=== PATIENT | female | born 1975 | race Caucasian/White ===

== ENCOUNTER 2018-07-18 08:12 | Observation (INO) | payer SELFPAY ==
[2018-07-18 08:42] LABS: Hemoglobin 12.1 g/dL (12.0-16.0); Mean Corpuscular HGB CONC 31.3 g/dL (32.0-36.0); Mean Corpuscular Hemoglobin 25.9 pg (27.0-31.0); Mean Corpuscular Volume 82.7 fL (78.0-98.0); Mean Platelet Volume 7.2 fL (7.4-10.4); Platelet Count 313 thou/uL (130-400); RBC Distribution Width 13.8 % (11.5-14.5); White Blood Cell (WBC) Count 21.2 thou/uL (4.8-10.8)
[2018-07-18 08:53] LABS: ALT (SGPT) 17 U/L (8-55); AST (SGOT) 12 U/L (5-34); Albumin 4.2 g/dL (3.5-5.0); Alkaline Phosphatase 92 U/L (40-150); Anion Gap 12 mmol/L (10-20); BUN (Urea Nitrogen) 16 mg/dL (7.0-18.7); Bilirubin, Total 0.8 mg/dL (0.2-1.2); Calc. Creatinine Clearance 0 mL/min (70-130); Calcium 9.6 mg/dL (7.8-10.44); Carbon Dioxide 28 mmol/L (22-29); Chloride 99 mmol/L (98-107); Estimated GFR-MDRD 64; Globulin 2.7 g/dL (2.4-3.5); Glucose 108 mg/dL (70-105); Lipase 10 U/L (8-78); Potassium 3.2 mmol/L (3.5-5.1); Protein, Total 6.9 g/dL (6.0-8.3); Sodium 136 mmol/L (136-145)
[2018-07-18 09:07] LABS: Band 7 % (5-11); Lymphocytes 5 % (21-51); MDiff Complete? YES; Monocytes 6 % (0-10); Neutrophil 82 % (42-75); RBC Morphology Normal
[2018-07-18 10:12] LABS: Bilirubin Small (Negative); Blood, Urine Small (Negative); Clarity CLEAR (Clear); Glucose, Urine (Dipstick) Negative (Negative); Leukocyte Small (Negative); Nitrite Negative (Negative); Protein, Urine (Dipstick) Trace mg/dL (Neg-Trace); Specific Gravity, Urine 1.028 (1.002-1.036)
[2018-07-18 10:13] LABS: Bacteria/HPF Rare-Few HPF (None Seen); Hyaline Casts/LPF 4-6 HYALINE CAST LPF (0-3 Hyaline); Pathc Cast-AUWi Flag 0.81 (0-2.49); Squamous Epithelial 0-3 HPF (0-3); WBC/HPF 21-50 HPF (0-3)
[2018-07-18 10:17] LABS: Pregnancy Test - Urine (BHCG) Negative (Negative); Pregu Control Background? CLEAR/WHITE (CLR/WHITE); Pregu Control Bar Appear? YES (CONTROL BAR); Specific Gravity 1.028 (1.002-1.036)
[2018-07-18 10:25] LABS: RBC/HPF 0-3 HPF (0-3)
[2018-07-18] MEDS ORDERED: ISOVUE-370 76%-LOCM 1 ML ONE (11:15)
--- NOTE | 2018-07-18 12:01 | CT ---
CT OF THE ABDOMEN AND PELVIS WITH IV CONTRAST INDICATION: Lower abdominal pain COMPARISON: None FINDINGS: ABDOMEN: Lung bases: Clear Liver: There is focal fatty infiltration near the falciform ligament. Gallbladder: Normal appearing. Pancreas: Normal. Adrenal glands: Normal. Spleen: Normal. Kidneys: Normal. Retroperitoneum of the upper abdomen: No lymphadenopathy or free fluid is identified. Pelvis: Small and large bowel: There is fluid density seen within portions of the colon. There is a normal ap pendix in the right lower quadrant of the abdomen. Rectal and perirectal soft tissues:Normal. Reproductive structures: There is peripherally enhancing serpiginous tubular structures seen within t he lower pelvis adjacent to the uterus which may reflect hydrosalpinx or pyosalpinx. These may also reflect prominent cystic abnormalities of the adnexa. The uterus is heterogeneous in appearance. Free fluid in pelvis: Mild Lymphadenopathy pelvis: No lymphadenopathy is evident. Vascular structures: There is mild scattered vascular calcifications. Osseous structures: There are bilateral pars defects at L5. No acute osseous abnormality is demonstra ailin. IMPRESSION: 1. Serpiginous, peripherally enhancing tubular structures within the lower pelvis is suspicious for e ither hydrosalpinx or pyosalpinx. Pelvic ultrasound is recommended for additional evaluation. Recommend correlation with clinical exam for any symptoms and signs of pelvic inflammatory disease. 2. Fluid density in the colon is nonspecific but can be seen in diarrheal states or mild colitis. 3. Mild free fluid in the pelvis 4. Fatty liver 5. Bilateral pars defects at L5.
[2018-07-18] MEDS ORDERED: Ketorolac Tromethamine 30 MG/ML VIAL ONE (12:19)
[2018-07-18] MEDS ORDERED: Azithromycin 500 MG VIAL ONE (12:21)
[2018-07-18] MEDS ORDERED: cefTRIAXone\\ROCEPHIN 2 GM VIAL ONE (12:21)
--- NOTE | 2018-07-18 13:25 | ULT ---
PELVIC ULTRASOUND: COMPARISON: CT abdomen/pelvis 07/18/2018. HISTORY: Abnormal CT with possible hydrosalpinx seen on CT. TECHNIQUE: Multiplanar, ballesteros scale, and color Doppler images were obtained in a transabdominal and transvaginal pelvic ultrasound. Spectral analysis of the Doppler waveforms of the ovaries was performed. FINDINGS: The uterus is retroverted. A small amount of fluid is seen in the cervix. The endometrial stripe is normal in thickness measuring 10 mm. There are complex tubular structures in the bilateral adnexal regions which likely represent enlarged fallopian tubes. No echogenic material is seen within either dilated structure and the fluid remain s anechoic within the tubular structures. The bilateral ovaries are seen separate from these tubular structures. There are small follicles in both ovaries. Normal flow is seen within both ovaries. A small amount of free fluid is seen in the pelvis. IMPRESSION: Tubular structures in both adnexal regions likely represent dilated fallopian tubes and may represent hydrosalpinx. POS: [facility]
[2018-07-18 14:16] LABS: Amphetamine Not Detected (NotDetected); Barbiturates Screen Not Detected (NotDetected); Benzodiazepine Screen Not Detected (NotDetected); Cocaine Metabolite Screen Not Detected (NotDetected); Medtox Control Line Valid? VALID (VALID); Medtox Reader # READER 1; Methadone Not Detected (NotDetected); Methamphetamine Not Detected (NotDetected); Opiate Screen Not Detected (NotDetected); Oxycodone Screen Not Detected (NotDetected); Phencyclidine (PCP) Not Detected (NotDetected); THC/Cannabinoid Screen Not Detected (NotDetected); Tricyclic Screen Not Detected (NotDetected)
[2018-07-18] MEDS ORDERED: Ondansetron PF 4 MG/2 ML Vial IVP PRN (15:21)
[2018-07-18] MEDS ORDERED: Morphine 4 MG/ML VIAL SLOW IVP SCH (15:30)
[2018-07-18] MEDS ORDERED: Morphine 4 MG/ML VIAL ONE (17:20)
[2018-07-18] MEDS: cefOXitin Sodium/Dextrose,Iso 2 GM in Premix Bag 1 BAG IVPB SCH (18:56)
[2018-07-18] MEDS: Ketorolac Tromethamine 30 MG/ML VIAL IVP SCH (19:04)
[2018-07-18] MEDS ORDERED: Sodium Chloride 0.9% 10 ML ONE (21:28)
[2018-07-18] MEDS: Morphine 4 MG/ML VIAL SLOW IVP PRN (21:48)
[2018-07-18] MEDS: Doxycycline 100 MG CAP PO SCH (21:50)
[2018-07-18] MEDS: Lactated Ringer's 1,000 ML IV SCH (21:53)
[2018-07-18] MEDS ORDERED: cefOXitin 2 GM in Sodium Chloride 0.9% 100 ML IVPB SCH (22:00)
[2018-07-19] MEDS: Ketorolac Tromethamine 30 MG/ML VIAL IVP SCH ×3 (00:39→11:13)
[2018-07-19] MEDS: Lactated Ringer's 1,000 ML IV SCH ×3 (00:44→15:46)
[2018-07-19] MEDS: cefOXitin Sodium/Dextrose,Iso 2 GM in Premix Bag 1 BAG IVPB SCH ×3 (00:45→19:00)
--- NOTE | 2018-07-19 01:00 | HP ---
PRIMARY HAZARDOUS WASTE REMOVER: None. CHIEF COMPLAINT: Pelvic abdominal pain. HISTORY OF PRESENT ILLNESS: The patient is a 42-year-old female, recently released from 20 years of incarceration in May, presenting today with 2-day history of worsening abdominal pain associated with nausea and vomiting yesterday and diarrhea today. She also reports that her pain was exacerbated with laying on her back for the ultrasound ordered by the ER physician. The patient does report she had intercourse a couple weeks ago with a new partner. She reports a history of chlamydia prior to incarceration. The patient reports regular monthly periods and just recently ended her period in the last few days. She denies any change in discharge, constipation, fever, chest pain, shortness of breath, any new rashes, hip problems, knee problems, muscle weakness, vaginal bleeding or discharge, urinary urgency or frequency. PAST MEDICAL HISTORY: Hyperlipidemia and elevated blood pressure. PAST SURGICAL HISTORY: Negative. ALLERGIES: NO KNOWN DRUG ALLERGIES. MEDICATIONS: 1. Hydrochlorothiazide 25 mg daily. 2. Metoprolol 25 mg twice daily. 3. Pravastatin 10 mg once daily. PHYSICAL EXAMINATION: VITAL SIGNS: Blood pressure is 147/91, pulse of 102, respiratory rate 18, pain 6/10, saturating 99% on room air. GENERAL: She appears to be in no acute distress, sitting still, does appear to have quite a bit of discomfort with trying to move her body into position for an exam. GENERAL: She is alert, oriented, cooperative, and pleasant to interact with. HEAD: Normocephalic, atraumatic. LUNGS: Clear to auscultation bilaterally. HEART: Has a regular rate and rhythm. ABDOMEN: Upper abdomen is soft. She does have quite significant lower abdominal tenderness. She also has significant tenderness to palpation and percussion of her back. EXTREMITIES: Nontender, nonedematous. Vulva is without masses, lesions, or erythema. CERVIX: On speculum exam, the patient reports significant discomfort with exam with visualization of the cervix. Cervix is visibly closed and nulliparous. She does have some purulent discharge present on bimanual exam. She has exquisite tenderness of the cervix and uterus with less tenderness in her adnexa. IMAGING: CT scan performed in the emergency room showed tubular structures in the pelvis suspicious for hydrosalpinx or pyosalpinx. Mild free fluid in the pelvis. Fatty liver. Followup ultrasound shows again tubular structures in the adnexa consistent with hydrosalpinx with anechoic fluid with a small amount of fluid seen in the pelvis. Uterus retroverted with a small amount of fluid in the cervix and an endometrial stripe of 10 mm. LABORATORY DATA: [place] [address], hemoglobin of 12.1, hematocrit 38.8, platelets of 313,000. Sodium of 136, potassium of 3.2, AST of 12, ALT of 17, and creatinine of 0.97. Lactic acid of 1. Urinalysis showing rare few bacteria, 21-50 white blood cells, small leukocyte esterase, negative nitrites, negative test, negative drug screen. ASSESSMENT AND PLAN: The patient is a 42-year-old female with a recent new sexual partner and symptoms consistent with pelvic inflammatory disease. The patient has been given a dose of Rocephin and azithromycin in the emergency room. She will be admitted given the significant tenderness that she is experiencing for continued IV antibiotics for at least the next 24 hours. During this time, she will be placed on observation. Should she experience fever or no significant improvement in the next 24 hours, patient may remain for the next day or two with IV antibiotics. Otherwise, plan is for patient be discharged tomorrow evening on oral antibiotics with outpatient followup. Gonorrhea chlamydia is pending. The patient has Toradol and morphine for pain control and has been placed on cefoxitin 2 g every 6 hours and doxycycline 100 mg twice daily. The patient will be re-evaluated in the morning. Job ID: [id number]
[2018-07-19] MEDS: Morphine 4 MG/ML VIAL SLOW IVP PRN (03:24)
--- NOTE | 2018-07-19 08:13 | PDOC.EVN ---
Event Note - Event Note Event Note: Charge Rn hand off received Patient RX for PID but no TOA I have ordered HIV and RPR as screen and GC and CHL pending Recheck CBC for downtrend Continue Cefoxitin and Doxy; BP meds are written
[2018-07-19] MEDS: Acetaminophen 500 MG TAB PO PRN ×2 (08:44→15:22)
[2018-07-19] MEDS: Metoprolol Tartrate 25 MG TAB PO SCH ×2 (08:45→20:44)
[2018-07-19] MEDS: Hydrochlorothiazide 25 MG TAB PO SCH (08:45)
[2018-07-19] MEDS: Doxycycline 100 MG CAP PO SCH ×2 (08:45→20:42)
[2018-07-19 09:16] LABS: #Eosinphils 0.1 thou/uL (0.0-0.7); #Lymphocytes 1.2 thou/uL (1.20-3.40); #Monocytes 0.9 thou/uL (0.11-0.59); #Neutrophils 7.3 thou/uL (1.40-6.50); %Basophils 0.2 % (0.0-1.0); %Eosinophils 0.7 % (0.0-10.0); %Lymphocytes 12.9 % (21.0-51.0); %Monocytes 9.7 % (0.0-10.0); %Neutrophils 76.4 % (42.0-75.0); Mean Corpuscular HGB CONC 30.3 g/dL (32.0-36.0); Mean Corpuscular Hemoglobin 25.4 pg (27.0-31.0); Mean Corpuscular Volume 83.7 fL (78.0-98.0); Mean Platelet Volume 7.7 fL (7.4-10.4); Platelet Count 247 thou/uL (130-400); RBC Distribution Width 14.1 % (11.5-14.5); Red Blood Cell (RBC) Count 3.93 mill/uL (4.20-5.40); White Blood Cell (WBC) Count 9.6 thou/uL (4.8-10.8)
--- NOTE | 2018-07-19 09:22 | PRG ---
DATE OF SERVICE: 07/19/2018 SUBJECTIVE: The patient was admitted last night for PID, placed on cefoxitin, doxycycline, Toradol, and IV morphine for pain control. The patient has been afebrile overnight. T-max of 99.1. This morning, the patient reports that she is subjectively feeling better with pain, but more focalizing and less diffuse and not as intense. The patient is tolerating a diet. OBJECTIVE: VITAL SIGNS: This morning, temperature 98.3, pulse of 94, respiratory rate of 20, O2 saturations 98%, blood pressure 134/85. GENERAL: She appears to be in no acute distress. She is alert and oriented, cooperative and pleasant to interact with. ABDOMEN: Less tender to palpation. GC and chlamydia, still pending. Vaginitis panel was negative for Trichomonas, Gardnerella, or Ana. The patient has been signed off to Dr. Maxwell, the oncoming physician, who is testing for HIV and syphilis and will follow up with those results and re-examine Ms. Overton this afternoon. Job ID: [id number]
[2018-07-19 09:44] LABS: Syphilis Antibody Nonreactive (Nonreactive); Syphilis Antibody Index 0.03 S/CO (<1.00 Non-Reactive)
[2018-07-19] MEDS ORDERED: cefOXitin 2 GM in Sodium Chloride 0.9% 100 ML IVPB SCH (12:00)
--- NOTE | 2018-07-19 12:11 | PDOC.EVN ---
Event Note - Event Note Event Note: Lab Check: RPR negative WBC now 9 down from 21 Continue ABX for now HIV test still pending GC and CHL pending
[2018-07-19] MEDS: Acetaminophen/Codeine 30-300mg Tablet PO PRN (17:31)
[2018-07-19] MEDS: Ibuprofen 800 MG TAB PO PRN (20:43)
[2018-07-20] MEDS: cefOXitin 2 GM in Sodium Chloride 0.9% 100 ML IVPB SCH ×4 (00:42→18:37)
[2018-07-20] MEDS: cefOXitin Sodium/Dextrose,Iso 2 GM in Premix Bag 1 BAG IVPB SCH (00:43)
[2018-07-20] MEDS: Lactated Ringer's 1,000 ML IV SCH ×4 (03:28→21:43)
[2018-07-20] MEDS: Acetaminophen/Codeine 30-300mg Tablet PO PRN ×3 (03:30→17:39)
[2018-07-20] MEDS: Ibuprofen 800 MG TAB PO PRN ×2 (06:02→19:46)
--- NOTE | 2018-07-20 06:06 | PDOC.EVN ---
Event Note - Event Note Event Note: DISCHARGE NOTE [facility] Admit date: 07/18/18 Discharge date: 07/20/18 Primary Diagnosis: Pelvic inflammatory disease Hydrosalpinx pelvic pain Course: patient admitted with Dr Ramos with DX of PID. Sono revealed bilateral hydrosalpinges but no TOA. Given Rocephin and Zmax in ED and given cefoxin and doxy on the [place]. I evaluated the patient on HD 2 on 07/20/18..pain better. Can tolerate PO well. Vitals over last 24 hours afebrile GC and CHL test still pending as of 07/20/18 0615. HIV test still pending as well On 07/20/18, pateint with c/o greenish "thick" vag dsch..suspect sandeep. Diflucan ordered x 1 Plan: DC to home 07/20/18 to continue outpatient DOXY BID x 7 days; tylenol #3 prn (# 20 only) Follow up in 2 weeks with any obgyn or [facility] Continue BP meds as written as outpatient
[2018-07-20] MEDS ORDERED: Fluconazole 100 MG TAB PO SCH (06:15)
[2018-07-20] MEDS ORDERED: Boudreaux's Butt Paste 16% Oin 30 GM TUBE TOP PRN (10:09)
[2018-07-20] MEDS: Doxycycline 100 MG CAP PO SCH ×2 (10:40→21:42)
[2018-07-20] MEDS: Metoprolol Tartrate 25 MG TAB PO SCH ×2 (10:40→21:41)
[2018-07-20] MEDS: Hydrochlorothiazide 25 MG TAB PO SCH ×2 (10:40→10:44)
--- NOTE | 2018-07-20 18:06 | PDOC.EVN ---
Event Note - Event Note Event Note: Afebrile. Ok for dc as per Dr. Maxwell's plan this morning. Will place the order.
--- NOTE | 2018-07-20 19:48 | PDOC.EVN ---
Event Note - Event Note Event Note: Pt lives in a [facility] house. They are unable to come and transport pt home nor waste picker medications. Pt will stay till tomorrow am. Will DC IV abx. continue doxycycline 100mg po bid
[2018-07-21] MEDS: Acetaminophen/Codeine 30-300mg Tablet PO PRN ×2 (04:18→09:29)
[2018-07-21] MEDS: Metoprolol Tartrate 25 MG TAB PO SCH (09:06)
[2018-07-21] MEDS: Doxycycline 100 MG CAP PO SCH (09:07)
[2018-07-21 10:26] VITALS: BP 166/99; TEMP 98.4
[2018-07-21 19:02] LABS: Chlamydia by PCR Not Detected (NotDetected); GC by PCR Not Detected (NotDetected)
[2018-07-21 19:07] LABS: HIV-1 Quantitative, RNA PCR <20 copies/mL (.)
--- NOTE | 2018-07-21 19:19 | DIS ---
DATE OF ADMISSION: 07/18/2018 DATE OF DISCHARGE: 07/21/2018 ADMITTING DIAGNOSIS: Pelvic inflammatory disease. DISCHARGE DIAGNOSIS: Pelvic inflammatory disease. PROCEDURE: None. HOSPITAL COURSE: The patient is a 42-year-old female, recently discharged from an incarceration, presenting with a 2-day history of worsening lower abdominal pain. After evaluation, the patient was diagnosed with PID and given the severity of her pain, was admitted for IV antibiotics. The patient has continued on cefoxitin and doxycycline until yesterday afternoon. The plan yesterday was for the patient to be discharged home; however, the patient has lived in a [facility] house and they were unable to come get her. The patient's IV antibiotic was discontinued yesterday and the patient continued p.o. doxycycline overnight. This morning, she reports that she is feeling significantly better since the date of admission, has only been requiring pain medication occasionally. PHYSICAL EXAMINATION: VITAL SIGNS: This morning; blood pressure 139/85, temperature 98.6, pulse of 71, respiratory rate of 16, saturating 95% to 98% on room air. GENERAL: She appears to be in no acute distress. She is alert, oriented, cooperative, and pleasant to interact with. ABDOMEN: Significantly improved compared to admission. DISCHARGE DISPOSITION: The patient is being discharged back to the [facility]. HOME MEDICATIONS: 1. Doxycycline 100 mg to be taken twice a day for the next week. 2. Ibuprofen 600 mg, to be taken every 6 hours as needed for pain, #20. 3. Tylenol No.3, 1-2 tablets every 4-6 hours as needed for pain, #20. The patient is being discharged from this [facility] this coming weekend and planning on residing in [place] with her sister where she will get followup in the next couple of weeks. Job ID: [id number]
== END 2018-07-21 10:12 | disposition home or self-care (01) ==
LOC: ERS 08:12 → 3SE 18:40
PROVIDERS: ADMIT Obstetrics & Gynecology; ATTEND Obstetrics & Gynecology
DX: N73.9 Female pelvic inflammatory disease, unspecified (principal); N70.11 Chronic salpingitis; R19.7 Diarrhea, unspecified; E78.5 Hyperlipidemia, unspecified; K76.0 Fatty (change of) liver, not elsewhere classified; Z79.899 Other long term (current) drug therapy
CPT/HCPCS: 36415; 74177; 76856; 80053; 80306; 81003; 81015; 81025; 83605; 83690; 85025; 86780; 87480; 87491; 87510; 87536; 87591; 87660; 96361; 96365; 96366; 96375; 96376; G0378; J0456; J0694; J0696; J1885; J2270; J3490; Q9966